=== PATIENT | female | born 1940 | race Caucasian/White ===

== ENCOUNTER 2021-05-31 05:30 | Inpatient (IN) ==
[2021-05-31] MEDS ORDERED: Isovue-370 500 ML BOTTLE IVP ONE (06:04)
[2021-05-31 06:15] LABS: Basophils % 0.3 %; Eosinophils # 0.2 K/mcL (0.0-0.6); Eosinophils % 1.8 %; Hematocrit 35.2 % (35.3-44.9); Hemoglobin 11.6 g/dL (11.5-15.4); Immature Granulocytes % 0.4 % (0-4); Lymphocytes # 1.9 K/mcL (0.6-4.6); Lymphocytes % 21.2 %; Mean Corpuscular Hemoglobin 30.4 pg (28.0-33.3); Mean Corpuscular Volume 92.4 fL (83.0-100.0); Mean Platelet Volume 9.6 fL (9.4-12.4); Monocytes % 10.7 %; Neutrophils # 5.9 K/mcL (1.6-8.9); Platelet Count 321 K/mcL (140-400); Red Blood Count 3.81 M/mcL (3.82-4.97); Red Cell Distribution Width 12.7 % (11.5-14.5); Segmented Neutrophils % 65.6 %
[2021-05-31] MEDS ORDERED: Ipratropium/Albuterol Neb 3 ML IH ONE ×2 (06:17→09:34)
[2021-05-31 06:22] LABS: INR 1.3
[2021-05-31 06:35] LABS: Alanine Aminotransferase 45 Units/L (7-52); Albumin 3.6 g/dL (3.5-5.7); Albumin/Globulin Ratio 1.3 (1.1-2.2); Alkaline Phosphatase 54 Units/L (34-104); Aspartate Amino Transferase 48 Units/L (13-39); BUN/Creatinine Ratio 26 (6-26); Bilirubin,Total 1.7 mg/dL (0.3-1.0); Blood Urea Nitrogen 15 mg/dL (8-23); Calcium 8.4 mg/dL (8.6-10.3); Carbon Dioxide 28 mEq/L (23-29); Chloride 99 mEq/L (98-107); Globulin 2.8 g/dL (2.4-3.5); Glucose 118 mg/dL (70-105); Osmolality,Calculated 282 (280-300); Potassium 3.9 mEq/L (3.5-5.1); Sodium 135 mEq/L (136-145); Total Protein 6.4 g/dL (6.4-8.9); Troponin I 0.05 ng/mL (< 0.04); eGFR For African Americans > 60 (> 60); eGFR For Non-African Americans > 60 (> 60)
[2021-05-31 06:38] LABS: VBG HCO3 29 mEq/L (21-27); VBG PCO2 48 mmHg (41-51); VBG PH 7.39 pH Units (7.32-7.42); VBG PO2 143 mmHg (25-50)
[2021-05-31] MEDS ORDERED: Ondansetron 4 MG/2 ML VIAL IVP ONE (07:17)
[2021-05-31 08:21] LABS: Influenza A PCR Negative (Negative); Influenza B PCR Negative (Negative); Resp. Syncytial Virus PCR Negative (Negative)
[2021-05-31] MEDS ORDERED: Ketorolac 30 MG/ML VIAL IVP ONE (09:01)
[2021-05-31] MEDS ORDERED: methylPREDNISolone 125 MG/2 ML VIAL IVP ONE (09:10)
[2021-05-31] MEDS ORDERED: 0.9 % Sodium Chloride 500 ML IVC ONE (09:10)
[2021-05-31 09:21] LABS: SARS-CoV-2 by PCR (In House) Negative (Negative)
[2021-05-31 09:28] LABS: Magnesium 2.1 mg/dL (1.6-2.6)
[2021-05-31] MEDS ORDERED: Cefepime HCl 1,000 MG in 0.9 % Sodium Chloride 10 ML IVPB STA (09:35)
[2021-05-31] MEDS ORDERED: Clindamycin 900 MG/50 ML 900 MG/50 ML IV.SOLN IVPB ONE (09:35)
[2021-05-31] MEDS ORDERED: Ondansetron 4 MG/2 ML VIAL IVP PRN (10:04)
[2021-05-31] MEDS ORDERED: Naloxone 0.4 MG/ML INJ IVP PRN (10:04)
[2021-05-31] MEDS ORDERED: Melatonin 3 MG TABLET PO PRN (10:04)
[2021-05-31] MEDS ORDERED: levoFLOXacin 750 MG/150 ML 750 MG/150 ML BAG IVPB SCH (10:15)
[2021-05-31] MEDS ORDERED: EPINEPHrine 1 MG/ML VIAL IM ONE (10:34)
[2021-05-31] MEDS ORDERED: EPINEPHrine 1 MG/ML VIAL ONE (10:36)
[2021-05-31] MEDS: MethylPREDNISolone 40 MG/ML VIAL IVP SCH ×3 (12:33→23:59)
[2021-05-31] MEDS: Ipratropium/Albuterol Neb 3 ML IH SCH ×4 (15:21→23:31)
[2021-06-01 03:08] LABS: Basophils % 0.1 %; Hematocrit 31.5 % (35.3-44.9); Hemoglobin 10.6 g/dL (11.5-15.4); Immature Granulocytes % 0.6 % (0-4); Lymphocytes # 0.9 K/mcL (0.6-4.6); Lymphocytes % 9.6 %; Mean Corpuscular HGB Conc 33.7 g/dL (31.6-35.5); Mean Corpuscular Hemoglobin 30.6 pg (28.0-33.3); Mean Platelet Volume 9.9 fL (9.4-12.4); Monocytes # 0.3 K/mcL (0.0-1.3); Monocytes % 2.9 %; Neutrophils # 7.7 K/mcL (1.6-8.9); Platelet Count 349 K/mcL (140-400); Red Blood Count 3.46 M/mcL (3.82-4.97); Red Cell Distribution Width 12.5 % (11.5-14.5); Segmented Neutrophils % 86.8 %; White Blood Count 8.8 K/mcL (4.3-11.1)
[2021-06-01 03:30] LABS: BUN/Creatinine Ratio 25 (6-26); Blood Urea Nitrogen 12 mg/dL (8-23); Calcium 8.2 mg/dL (8.6-10.3); Carbon Dioxide 27 mEq/L (23-29); Chloride 102 mEq/L (98-107); Glucose 156 mg/dL (70-105); Osmolality,Calculated 283 (280-300); Potassium 3.9 mEq/L (3.5-5.1); Sodium 135 mEq/L (136-145); eGFR For African Americans > 60 (> 60); eGFR For Non-African Americans > 60 (> 60)
[2021-06-01] MEDS: Ipratropium/Albuterol Neb 3 ML IH SCH ×6 (04:18→23:35)
[2021-06-01] MEDS: MethylPREDNISolone 40 MG/ML VIAL IVP SCH (06:15)
[2021-06-01] MEDS: *HR* Enoxaparin 40 MG/0.4 ML SYRINGE SQ SCH (06:15)
[2021-06-02] MEDS: Ipratropium/Albuterol Neb 3 ML IH SCH ×3 (04:00→10:34)
[2021-06-02 04:46] VITALS: TEMP 98.8
[2021-06-02] MEDS: *HR* Enoxaparin 40 MG/0.4 ML SYRINGE SQ SCH (05:11)
[2021-06-02 07:04] VITALS: BP 116/56; PULSE 68
[2021-06-02] MEDS ORDERED: predniSONE 20 MG TABLET PO SCH (09:00)
[2021-06-02 10:39] VITALS: O2SAT 95
== END 2021-06-02 13:09 | disposition home health service (06) | DRG 190 ==
LOC: 2ANU 05:30 → EMEROOARM 05:30 → 2ANU 11:57 → SUATTDRO 06-01 09:27
PROVIDERS: ADMIT Hospitalist; ATTEND Family Medicine

== ENCOUNTER 2021-06-13 19:58 | Observation (INO) ==
[2021-06-13 20:35] LABS: Basophils % 0.5 %; Eosinophils # 0.2 K/mcL (0.0-0.6); Eosinophils % 2.9 %; Hematocrit 35.8 % (35.3-44.9); Hemoglobin 11.6 g/dL (11.5-15.4); Immature Granulocytes % 0.6 % (0-4); Lymphocytes # 1.6 K/mcL (0.6-4.6); Lymphocytes % 20.7 %; Mean Corpuscular HGB Conc 32.4 g/dL (31.6-35.5); Mean Corpuscular Hemoglobin 29.9 pg (28.0-33.3); Mean Corpuscular Volume 92.3 fL (83.0-100.0); Mean Platelet Volume 9.2 fL (9.4-12.4); Monocytes # 0.9 K/mcL (0.0-1.3); Monocytes % 11.8 %; Platelet Count 479 K/mcL (140-400); Red Blood Count 3.88 M/mcL (3.82-4.97); Red Cell Distribution Width 13.2 % (11.5-14.5); Segmented Neutrophils % 63.5 %; White Blood Count 7.9 K/mcL (4.3-11.1)
[2021-06-13 20:51] LABS: Alanine Aminotransferase 13 Units/L (7-52); Albumin 3.5 g/dL (3.5-5.7); Albumin/Globulin Ratio 1.1 (1.1-2.2); Alkaline Phosphatase 52 Units/L (34-104); Aspartate Amino Transferase 14 Units/L (13-39); BUN/Creatinine Ratio 20 (6-26); Bilirubin,Total 0.6 mg/dL (0.3-1.0); Blood Urea Nitrogen 12 mg/dL (8-23); Calcium 8.6 mg/dL (8.6-10.3); Carbon Dioxide 26 mEq/L (23-29); Chloride 101 mEq/L (98-107); Globulin 3.3 g/dL (2.4-3.5); Glucose 145 mg/dL (70-105); Osmolality,Calculated 286 (280-300); Potassium 3.6 mEq/L (3.5-5.1); Sodium 137 mEq/L (136-145); Total Protein 6.8 g/dL (6.4-8.9); eGFR For African Americans > 60 (> 60); eGFR For Non-African Americans > 60 (> 60)
[2021-06-13] MEDS ORDERED: Morphine Sulfate 2 MG/ML SYRINGE IVP ONE (20:56)
[2021-06-13 21:08] LABS: Influenza A PCR Negative (Negative); Influenza B PCR Negative (Negative); Resp. Syncytial Virus PCR Negative (Negative)
[2021-06-13 21:11] LABS: SARS-CoV-2 by PCR (In House) Negative (Negative)
[2021-06-13] MEDS ORDERED: Melatonin 3 MG TABLET PO PRN (22:45)
[2021-06-13] MEDS ORDERED: *HR* HYDROcodone/Acet 5/325 mg TABLET PO PRN (22:45)
[2021-06-13] MEDS ORDERED: Ondansetron ODT 4 MG TAB.RAPDIS SL PRN (22:45)
[2021-06-13] MEDS ORDERED: Naloxone 0.4 MG/ML INJ IVP PRN (22:45)
[2021-06-13] MEDS ORDERED: Acetaminophen 325 MG TABLET PO PRN (22:45)
[2021-06-13] MEDS: *HR* OxyCODONE Immed Rel 5 MG TABLET PO PRN (23:48)
[2021-06-13] MEDS ORDERED: Ipratropium/Albuterol Neb 3 ML IH PRN (23:56)
[2021-06-14 05:53] LABS: Hematocrit 33.5 % (35.3-44.9); Hemoglobin 11.1 g/dL (11.5-15.4); Mean Corpuscular HGB Conc 33.1 g/dL (31.6-35.5); Mean Corpuscular Hemoglobin 30.4 pg (28.0-33.3); Mean Corpuscular Volume 91.8 fL (83.0-100.0); Mean Platelet Volume 9.3 fL (9.4-12.4); Platelet Count 476 K/mcL (140-400); Red Blood Count 3.65 M/mcL (3.82-4.97); Red Cell Distribution Width 13.2 % (11.5-14.5); White Blood Count 8.3 K/mcL (4.3-11.1)
[2021-06-14 06:06] LABS: BUN/Creatinine Ratio 15 (6-26); Blood Urea Nitrogen 8 mg/dL (8-23); Calcium 8.2 mg/dL (8.6-10.3); Carbon Dioxide 26 mEq/L (23-29); Chloride 102 mEq/L (98-107); Chol/HDL Ratio 2.5 (0-4.9); Cholesterol 141 mg/dL (< 200); Glucose 117 mg/dL (70-105); HDL Cholesterol 57 mg/dL (40-59); LDL Cholesterol,Calculated 60 mg/dL (< 100); Osmolality,Calculated 281 (280-300); Phosphorous 3.3 mg/dL (2.7-4.5); Potassium 3.9 mEq/L (3.5-5.1); Sodium 136 mEq/L (136-145); Triglycerides 122 mg/dL (< 150); eGFR For African Americans > 60 (> 60); eGFR For Non-African Americans > 60 (> 60)
[2021-06-14] MEDS ORDERED: Benzonatate 100 MG CAPSULE PO PRN (09:42)
[2021-06-14] MEDS ORDERED: NON-FORMULARY MEDICATION 1 EACH EACH (Acetaminophen [Tylenol Arthritis] 650 MG Tablet.Er) PO PRN (10:02)
[2021-06-14] MEDS: *HR* OxyCODONE Immed Rel 5 MG TABLET PO PRN ×2 (10:42→17:21)
[2021-06-14] MEDS: predniSONE 20 MG TABLET PO SCH (10:42)
[2021-06-14] MEDS: Azithromycin 250 MG TABLET PO SCH (10:42)
[2021-06-14] MEDS: Ipratropium/Albuterol Neb 3 ML IH SCH ×4 (12:37→23:22)
[2021-06-14] MEDS: *HR* Heparin 5,000 UNIT/ML VIAL SQ SCH (17:25)
[2021-06-15] MEDS: Ipratropium/Albuterol Neb 3 ML IH SCH ×6 (03:37→23:49)
[2021-06-15] MEDS: *HR* Heparin 5,000 UNIT/ML VIAL SQ SCH ×2 (04:25→18:10)
[2021-06-15] MEDS: *HR* OxyCODONE Immed Rel 5 MG TABLET PO PRN (04:25)
[2021-06-15] MEDS: Azithromycin 250 MG TABLET PO SCH (09:28)
[2021-06-15] MEDS: predniSONE 20 MG TABLET PO SCH (09:28)
[2021-06-16] MEDS: *HR* OxyCODONE Immed Rel 5 MG TABLET PO PRN (01:38)
[2021-06-16] MEDS: Ipratropium/Albuterol Neb 3 ML IH SCH ×6 (03:48→23:29)
[2021-06-16] MEDS: *HR* Heparin 5,000 UNIT/ML VIAL SQ SCH ×2 (05:07→17:47)
[2021-06-16] MEDS: Azithromycin 250 MG TABLET PO SCH (09:06)
[2021-06-16] MEDS: predniSONE 20 MG TABLET PO SCH (09:06)
[2021-06-17] MEDS: Ipratropium/Albuterol Neb 3 ML IH SCH ×3 (03:29→12:25)
[2021-06-17] MEDS: *HR* Heparin 5,000 UNIT/ML VIAL SQ SCH (04:58)
[2021-06-17 05:17] LABS: Basophils % 0.3 %; Eosinophils % 0.3 %; Hematocrit 34.1 % (35.3-44.9); Hemoglobin 11.3 g/dL (11.5-15.4); Immature Granulocytes % 0.7 % (0-4); Lymphocytes # 2.5 K/mcL (0.6-4.6); Lymphocytes % 23.7 %; Mean Corpuscular HGB Conc 33.1 g/dL (31.6-35.5); Mean Corpuscular Hemoglobin 30.2 pg (28.0-33.3); Mean Corpuscular Volume 91.2 fL (83.0-100.0); Mean Platelet Volume 9.3 fL (9.4-12.4); Monocytes # 0.9 K/mcL (0.0-1.3); Monocytes % 8.7 %; Platelet Count 496 K/mcL (140-400); Red Blood Count 3.74 M/mcL (3.82-4.97); Red Cell Distribution Width 13.5 % (11.5-14.5); Segmented Neutrophils % 66.3 %; White Blood Count 10.5 K/mcL (4.3-11.1)
[2021-06-17 07:35] LABS: BUN/Creatinine Ratio 22 (6-26); Blood Urea Nitrogen 12 mg/dL (8-23); Calcium 8.9 mg/dL (8.6-10.3); Carbon Dioxide 27 mEq/L (23-29); Chloride 100 mEq/L (98-107); Glucose 108 mg/dL (70-105); Osmolality,Calculated 286 (280-300); Potassium 3.3 mEq/L (3.5-5.1); Sodium 138 mEq/L (136-145); eGFR For African Americans > 60 (> 60); eGFR For Non-African Americans > 60 (> 60)
[2021-06-17] MEDS ORDERED: Azithromycin 250 MG TABLET PO SCH (09:00)
[2021-06-17] MEDS: predniSONE 20 MG TABLET PO SCH (09:25)
[2021-06-17 11:17] VITALS: BP 125/68; PULSE 109; TEMP 97.7
[2021-06-17 12:27] VITALS: O2SAT 93
[2021-06-17 13:09] LABS: Adenovirus Not Detected (Not Detect); Bordetella Pertussis Not Detected (Not Detect); Chlamydophila pneumoniae Not Detected (Not Detect); Coronavirus 229E Not Detected (Not Detect); Coronavirus HKU1 Not Detected (Not Detect); Coronavirus NL63 Not Detected (Not Detect); Coronavirus OC43 Not Detected (Not Detect); Human Metapneumovirus Not Detected (Not Detect); Human Rhinovirus/Enterovirus Not Detected (Not Detect); Influenza A Subtype 2009 H1 Not Detected (Not Detect); Influenza B Not Detected (Not Detect); Mycoplasma pneumoniae Not Detected (Not Detect); Parainfluenza Virus 1 Not Detected (Not Detect); Parainfluenza Virus 2 Not Detected (Not Detect); Parainfluenza Virus 3 Not Detected (Not Detect); Parainfluenza Virus 4 Not Detected (Not Detect); Respiratory Syncytial Virus Not Detected (Not Detect); SARS-CoV-2 Not Detected (Not Detect)
== END 2021-06-17 14:00 ==
LOC: 4WAOSI 19:58 → EMEROOARM 19:58 → SUATTDRO 22:44 → 4WAOSI 22:47
PROVIDERS: ADMIT Family Medicine; ATTEND General Practice